=== PATIENT | female | born 1955 | race Caucasian/White ===

== ENCOUNTER 2024-04-04 13:20 | Emergency (ER) | payer OTHER, SELFPAY ==
[2024-04-04 13:22] VITALS: BP 157/94
--- NOTE | 2024-04-04 14:02 | ED.GENMED ---
History of Present Illness
General
Chief Complaint: Musculo-Skeletal Complaint
Time Seen by Provider: 04/04/24 13:55
Travel History
Have you had any contact with someone who has COVID-19?: No
Do you have any symptoms of coronavirus? Fever > 100 degrees, chills, cough, shortness of breath, sore throat, loss of taste or smell, muscle aches, or headache?: No
History of Present Illness
History of Present Illness:
Patient is a 68-year-old female with a history of osteoarthritis of the right hip who presents with right hip pain shooting down the leg after chiropractic manipulation. States she was initially getting some pain in her low back and right hip after
landscaping few weeks ago. She saw her chiropractor who did acupressure with some relief. She then returned to the chiropractor last Tuesday and had a manipulation done. Since then she has been having shooting pain down the right leg. No
weakness. No bowel or bladder incontinence. No saddle anesthesia. Pain is worse with ambulating but she is able to bear weight.
Past History
Past History
ED Past Medical History: Other (Chest pain) and Other (Stress incontinence)
ED Past Surgical History: None
Social History
Tobacco: Non-smoker
Alcohol: Occasional
Drug: None
Personal:
Living: alone
Employment: Employed
Family History
Family History: Other (Noncontributory)
Phy Exam
Physical Exam
Physical Exam:
General: No acute distress
Head: NCAT
Neck, Normal in appearance, no swelling
Respiratory: No Respiratory distress
Abdomen: No distension
Ext: Right lower extremity normal in appearance. Warm and well-perfused. Sensation intact to light touch throughout. Palpable pedal and posterior tibial pulses. 2+ patellar reflexes bilaterally. 5 out of 5 strength in hip flexors knee extension
knee flexion dorsiflexion and plantarflexion. Positive straight leg raise on the right. No midline spinal tenderness or step-offs.
Neuro: CASTELAN, AOx4
Psych: Normal affect
Skin: Normal color
Course
Orders/Labs/Results
Orders:
Orders
04/04/24 14:01
Hip, Right 2-3 Views [CR Hip - RT w/wo Pel 2-3 Vw*] Urgent
Comment:
Reason For Exam: right hip pain
Include a pelvis x-ray?: Yes
Vital Signs
Initial and Last Documented VS:
Initial Vital Signs
Temp Pulse Resp BP Pulse Ox
98.7 F 121 20 157/94 97
04/04/24 13:22 04/04/24 13:22 04/04/24 13:22 04/04/24 13:22 04/04/24 13:22
Last Documented Vital Signs
Temp Pulse Resp BP Pulse Ox
98.7 F 91 16 156/83 100
04/04/24 13:22 04/04/24 17:02 04/04/24 17:02 04/04/24 17:02 04/04/24 17:02
*Critical Care Note
Total Time (30-74mins, 75-104mins- exclusive of procedures): Not Applicable
ED Attending Note
ED Attending Note
ED Attending Note:
History and exam consistent with sciatic impingement on the right. There is no evidence of cord or conus syndrome at this time. Will rule out bony injury with x-ray but generally have a low suspicion
X-ray showing suspected mild lucency around the supra-acetabular portion of the right iliac bone. Cannot rule out arthroplasty loosening. Discussed this with on-call orthopedist Dr. Murray. patient ambulatory. Recommends close outpatient
follow-up
-
Portions of this chart may have been created with voice recognition software.� Occasional wrong word or��sound alike� substitutions may have occurred due to the inherent limitations of voice recognition software.
Discharge Plan
Departure
Patient Disposition: Home (Routine Discharge)
Date of Disposition: 04/04/24
Time of Disposition: 17:33
Patient with high blood pressure during this ER visit?: Yes
Discharge Problem:
Osteoarthritis of right hip, Acute lumbar radiculopathy
Prescriptions:
New
methylprednisolone [Medrol ([place])] 4 mg tablets,dose pack
See Rx Instructions .ROUTE .COMPLEX Qty: 21 0RF
Rx Instructions:
orally per package directions
No Action
tolterodine [Detrol] 1 MG tablet
4 mg PO DAILY
Patient Comments:
Pt. unsure of dosage
acetaminophen 325 MG tablet
650 mg PO Q4HPRN PRN (Reason: mild pain ) Qty: 0 0RF
celecoxib [Celebrex] 200 mg Capsule
200 mg PO DAILY
omeprazole 20 mg Capsule,Delayed Release(Dr/Ec)
20 mg PO DAILY
cholecalciferol (vitamin D3) [Vitamin D3] 25 mcg (1,000 unit) Tablet
25 mcg PO DAILY
Elderberry Zinc Vit C
2 tab PO DAILY
Women's 50 Plus Daily Formula
2 tab PO DAILY
apple cider vinegar
2 tab PO DAILY
azksskp-oclp-zkxsp-oreg-capryl
2 tab PO DAILY
Referrals:
Anjali Bennett PA-C [Family Provider] -
Activity Restrictions/Additional Instructions:
Please follow-up with your orthopedist to discuss x-ray results as soon as possible. PLease avoid chiropractic manipulation until talking to your orthopedist
Interventions
Interventions:
*Risk Screen - Suicide Last Done: 04/04/24 13:25
*General Assessment Last Done: 04/04/24 13:25
*Neglect/Abuse Screening Last Done: 04/04/24 13:25
*ED COVID-19 Vaccine History Last Done: 04/04/24 13:25
*Nursing Disposition Last Done: 04/04/24 17:43
ED-Musculoskeletal Assessment Last Done: 04/04/24 13:58
Discharge Date and Time
Discharge Date/Time: 04/04/24 17:43
Print Language: WELSH
[2024-04-04 17:02] VITALS: BP 156/83
== END 2024-04-04 17:43 | disposition home or self-care (01) ==
LOC: EMR 13:20
PROVIDERS: EMERGENCY PHYSICIAN Emergency Medicine; FAMILY PHYSICIAN Physician Assistant Medical
DX: M54.16 Radiculopathy, lumbar region (principal); M16.11 Unilateral primary osteoarthritis, right hip; Z96.643 Presence of artificial hip joint, bilateral
CPT/HCPCS: 99283; 73502

== ENCOUNTER → 2024-05-30 18:21 | Outpatient (REF) | payer OTHER, SELFPAY | LOC: WDC 18:21 | PROVIDERS: ATTENDING PHYSICIAN Obstetrics & Gynecology; FAMILY PHYSICIAN Physician Assistant Medical | DX: Z12.31 Encounter for screening mammogram for malignant neoplasm of breast (principal) | CPT/HCPCS: 77063; 77067 ==

== ENCOUNTER → 2024-06-07 07:37 | Outpatient (REF) | payer OTHER, SELFPAY | LOC: EMG 07:37 | PROVIDERS: ATTENDING PHYSICIAN Psychiatry & Neurology Neurology; FAMILY PHYSICIAN Physician Assistant Medical | DX: R20.0 Anesthesia of skin (principal) | CPT/HCPCS: 95886; 95910 ==

== ENCOUNTER → 2024-06-16 07:46 | Outpatient (REF) | payer OTHER, SELFPAY ==
[2024-06-16 09:27] LABS: Total Cholesterol 283 mg/dl (50-199); Triglyceride 55 mg/dl (10-149); Very Low Density Lipoprotein 11 mg/dl (0-30)
[2024-06-16 10:20] LABS: HDL Cholesterol 118 mg/dl; LDL Cholesterol, Calculated 154 mg/dl
== END ==
LOC: REG 07:46
PROVIDERS: ATTENDING PHYSICIAN Nuclear Medicine Nuclear Cardiology; FAMILY PHYSICIAN Physician Assistant Medical
DX: E78.2 Mixed hyperlipidemia (principal)
CPT/HCPCS: 36415; 80061

== ENCOUNTER → 2024-06-27 07:42 | Outpatient (REF) | payer OTHER, SELFPAY | LOC: RAD 07:42 | PROVIDERS: ATTENDING PHYSICIAN Psychiatry & Neurology Neurology; FAMILY PHYSICIAN Physician Assistant Medical | DX: G57.02 Lesion of sciatic nerve, left lower limb (principal) | CPT/HCPCS: 76882 ==

== ENCOUNTER → 2024-09-11 14:46 | Outpatient (REF) | payer OTHER, SELFPAY | LOC: RAD 14:46 | PROVIDERS: ATTENDING PHYSICIAN Obstetrics & Gynecology; FAMILY PHYSICIAN Physician Assistant Medical | DX: Z78.0 Asymptomatic menopausal state (principal) | CPT/HCPCS: 77080 ==

== ENCOUNTER → 2024-10-16 14:20 | Outpatient (REF) | payer OTHER, SELFPAY | LOC: RCS 14:20 | PROVIDERS: ATTENDING PHYSICIAN Nuclear Medicine Nuclear Cardiology; FAMILY PHYSICIAN Physician Assistant Medical | DX: E78.2 Mixed hyperlipidemia (principal); R07.89 Other chest pain | CPT/HCPCS: 93017; 93350 ==

== ENCOUNTER → 2024-11-06 09:56 | Outpatient (REF) | payer OTHER, SELFPAY | LOC: HWRAD 09:56 | PROVIDERS: ATTENDING PHYSICIAN Student in an Organized Health Care Education/Training Program | DX: Z87.891 Personal history of nicotine dependence (principal) | CPT/HCPCS: 71271 ==

== ENCOUNTER → 2025-04-06 07:34 | Outpatient (REF) | payer OTHER, SELFPAY ==
[2025-04-06 09:06] LABS: ALT (SGPT) 17 U/L (0-35); AST (SGOT) 26 U/L (14-36); Albumin 4.7 g/dl (3.5-5.0); Alkaline Phosphatase 53 U/L (38-126); Blood Urea Nitrogen 10 mg/dl (7-17); Calcium 9.6 mg/dl (8.4-10.2); Carbon Dioxide 26 mmol/L (22-30); Chloride 107 mmol/L (98-107); Glucose 92 mg/dl (70-99); HDL Cholesterol 90 mg/dl; LDL Cholesterol, Calculated 135 mg/dl; Potassium 4.7 mmol/L (3.5-5.1); Sodium 140 mmol/L (135-145); Total Bilirubin 0.9 mg/dl (0.2-1.3); Total Cholesterol 238 mg/dl (50-199); Total Protein 7.3 g/dl (6.3-8.2); Triglyceride 68 mg/dl (10-149); Very Low Density Lipoprotein 13 mg/dl (0-30); eGFR > 60.00
== END ==
LOC: REG 07:34
PROVIDERS: ATTENDING PHYSICIAN Nuclear Medicine Nuclear Cardiology; FAMILY PHYSICIAN Student in an Organized Health Care Education/Training Program
DX: E78.2 Mixed hyperlipidemia (principal); R03.0 Elevated blood-pressure reading, without diagnosis of hypertension
CPT/HCPCS: 36415; 80053; 80061